=== PATIENT | female | born 1995 | race Two or more races ===

== ENCOUNTER 2022-06-20 11:41 | Outpatient (CLI) | payer OTHER | END 2022-06-20 11:48 | disposition home or self-care (01) | LOC: SONOGRAMA 11:41 | PROVIDERS: ATTEND Internal Medicine Cardiovascular Disease | DX: E03.8 Other specified hypothyroidism (principal) ==

== ENCOUNTER → 2025-04-29 | Emergency (ER) | payer OTHER ==
[~2025-04-29] VITALS: Ht 177.8 cm; Wt 70.8 kg
[~2025-04-29] MED LIST: ADDERALL 20 MG20 MG PO; METHYLPREDNISOLONE SOD SUCC 40 MG VIAL IV ONE
[2025-04-29 19:51] VITALS: BP 112/72; O2SAT 99
== END | disposition left against medical advice (07) ==
LOC: ER 18:58
DX: R21 Rash and other nonspecific skin eruption (principal)

== ENCOUNTER 2025-06-08 02:19 | Emergency (ER) | payer OTHER ==
[~2025-06-08] VITALS: Ht 177.8 cm; Wt 69.9 kg
[~2025-06-08 02:19] MED LIST changes: -METHYLPREDNISOLONE SOD SUCC 40 MG VIAL IV ONE
[2025-06-08] MEDS ORDERED: AMPHETAMINE SAL20 MG PO (02:32)
[2025-06-08] MEDS ORDERED: METHYLPREDNISOLONE SOD SUCC 125 MG VIAL IV STA (02:40)
[2025-06-08] MEDS ORDERED: FAMOtidine 10 MG/ML (4ML VIAL) IV PUSH STA (02:40)
[2025-06-08] MEDS ORDERED: EPINEPHRINE HCL/PF 1 MG/ML AMPUL SUBCUTANEO STA (02:41)
== END 2025-06-08 03:32 | disposition home or self-care (01) ==
LOC: ER 02:19 → EDSEX 02:30 → ER 03:32
DX: L50.9 Urticaria, unspecified (principal); R21 Rash and other nonspecific skin eruption